=== PATIENT | male | born 1990 | race African-American/Black ===

== ENCOUNTER 2021-08-13 23:08 | Emergency (ER) | payer OTHER ==
[~2021-08-13] VITALS: Ht 165.1 cm; Wt 81.6 kg
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
[2021-08-13 23:19] VITALS: BP 119/86
--- NOTE | 2021-08-13 23:44 | NUR ---
Patient discharged to home in stable condition. Written and verbal after care instructions given. Patient verbalizes understanding of instruction.
== END 2021-08-13 23:44 | disposition home or self-care (01) ==
LOC: ER 23:12
DX: S61.212A Laceration without foreign body of right middle finger without damage to nail, initial encounter (principal); W26.0XXA Contact with knife, initial encounter; Y93.G1 Activity, food preparation and clean up; Y92.89 Other specified places as the place of occurrence of the external cause; Y99.8 Other external cause status